=== PATIENT | female | born 1990 | race Caucasian/White ===

== ENCOUNTER 2017-12-04 13:26 | Inpatient (IN) | payer OTHER ==
[~2017-12-04] VITALS: Ht 157.5 cm; Wt 89.4 kg
== END 2017-12-07 10:16 | disposition home or self-care (01) | DRG 743 ==
LOC: SURH 13:26 → OB/GYN 19:42
PROVIDERS: Obstetrics & Gynecology
PROC: 0WJJ0ZZ Inspection of Pelvic Cavity, Open Approach (ICD-10-PCS; 2017-12-04)
PROC: 0UB00ZZ Excision of Right Ovary, Open Approach (ICD-10-PCS; 2017-12-04)
PROC: 0UT00ZZ Resection of Right Ovary, Open Approach (ICD-10-PCS; principal; 2017-12-04 16:00)
DX: N80.1 Endometriosis of ovary (principal); N83.291 Other ovarian cyst, right side; N73.6 Female pelvic peritoneal adhesions (postinfective)

== ENCOUNTER 2020-05-15 08:38 | Emergency (ER) | payer OTHER ==
[~2020-05-15] VITALS: Ht 160 cm; Wt 90.7 kg
[2020-05-15] MEDS ORDERED: CANABIS MEDICINAL (08:56)
[2020-05-15] MEDS ORDERED: CYMBALTA20 MG (08:56)
== END 2020-05-15 14:26 | disposition home or self-care (01) ==
LOC: ER 08:38
DX: J32.8 Other chronic sinusitis (principal); J06.9 Acute upper respiratory infection, unspecified

== ENCOUNTER 2020-05-25 19:21 | Emergency (ER) | payer OTHER ==
[~2020-05-25] VITALS: Ht 160 cm; Wt 90.7 kg
[~2020-05-25 19:21] MED LIST: CANABIS MEDICINAL; CYMBALTA20 MG
[2020-05-25] MEDS ORDERED: OXYC1TAB9 PO (19:38)
== END 2020-05-25 22:01 | disposition home or self-care (01) ==
LOC: ER 19:21
DX: N83.292 Other ovarian cyst, left side (principal); R10.2 Pelvic and perineal pain

== ENCOUNTER 2020-06-05 09:53 | Emergency (ER) | payer OTHER ==
[~2020-06-05] VITALS: Ht 160 cm; Wt 90.7 kg
[~2020-06-05 09:53] MED LIST changes: +OXYC1TAB9 PO
== END 2020-06-05 16:43 | disposition home or self-care (01) ==
LOC: ER 09:53
DX: N83.291 Other ovarian cyst, right side (principal)

== ENCOUNTER 2020-11-20 22:54 | Emergency (ER) | payer OTHER ==
[~2020-11-20] VITALS: Ht 160 cm; Wt 90.7 kg
[2020-11-21] MEDS ORDERED: KEFLEX750 MG PO (03:11)
== END 2020-11-21 03:40 | disposition home or self-care (01) ==
LOC: ER 22:54
DX: N75.1 Abscess of Bartholin's gland (principal)

== ENCOUNTER 2020-11-24 11:24 | Inpatient (IN) | payer OTHER ==
[~2020-11-24] VITALS: Ht 157.5 cm; Wt 90.7 kg
[~2020-11-24 11:24] MED LIST changes: +KEFLEX750 MG PO
--- NOTE | 2020-11-24 11:31 | NUR ---
PTE REFIERE QUE VINO EL DEAN POR RASHI VALTONILA LA CUAL FUE ATENDIDA POR EL LATRICE OCHOA Y SE LE DENNISE RECETA MEDICA LA CUAL NO SE PUDO DESPACHAR EL MEDICAMENTO Y SE VOLVIO A LLENAR EL ABCESO TENIENDO MUCHO DOLOR LA PTE. SE ACOMODA EN MALIHA .
--- NOTE | 2020-11-24 13:00 | NUR ---
SE ORIENTA PTE SOBRE TX MEDICO EL CUAL REFIERE ENTENDER.SE LE EXTRAEN MUESTRAS BAJO MEDIDAS ASEPTICAS,SE CANALIZA Y SE ADMINISTRA MEDICAMENTO RANJAN ORDEN MEDICA.
--- NOTE | 2020-11-24 13:14 | NUR ---
PTE REHUSA COLECCION DE MUESTRA DE CULTIVO DE ABCESO, ESTA REFIERE NO ESTA SUPURANDO. SE RASHMI RE-ORIENTACION PTE CONTINUA REHUSANDO. SE NOTIFICA A DR.COLON SAUCEDA.
== END 2020-11-27 19:09 | disposition home or self-care (01) | DRG 759 ==
LOC: ER 11:24 → OB/GYN 16:46
PROVIDERS: ADMIT Obstetrics & Gynecology; ATTEND Obstetrics & Gynecology
PROC: 0U9LXZZ Drainage of Vestibular Gland, External Approach (ICD-10-PCS; principal; 2020-11-25 13:00)
DX: N75.1 Abscess of Bartholin's gland (principal)